=== PATIENT | male | born 1940 | race Caucasian/White ===

== ENCOUNTER 2018-04-30 19:41 | Inpatient (IN) | payer OTHER, MEDICARE ==
[~2018-04-30] VITALS: Ht 182.9 cm; Wt 97.4 kg
[2018-04-30] MEDS ORDERED: aspirin 81mg tab.chew PO ONE (19:50)
[2018-04-30 20:03] LABS: BASOPHILS % (AUTO) 0.2 % (0-1); EOSINOPHILS % (AUTO) 0.3 % (0-6); HEMATOCRIT 33.4 % (42.0-52.0); HEMOGLOBIN 10.4 g/dl (14.0-17.9); LYMPHOCYTES # (AUTO) 0.7 X10'3 (1.1-4.8); LYMPHOCYTES % (AUTO) 9.6 % (21-51); MEAN CORPUSCULAR HEMOGLOBIN 23.5 PG (27.0-31.0); MEAN CORPUSCULAR HGB CONC 31.1 % (33.0-36.5); MEAN CORPUSCULAR VOLUME 75.6 FL (78-98); MEAN PLATELET VOLUME 7.8 FL (7.4-10.4); MONOCYTES # (AUTO) 0.5 X10'3 (0-0.9); MONOCYTES % (AUTO) 6.8 % (2-12); NEUTROPHILS # (AUTO) 6.1 X10'3 (1.8-7.7); NEUTROPHILS % (AUTO) 83.1 % (42-75); PLATELET COUNT 225 X10'3 (140-440); RED BLOOD COUNT 4.42 X10'6 (4.70-6.10); RED CELL DISTRIBUTION WIDTH 20.3 % (11.5-14.5); WHITE BLOOD COUNT 7.4 X10'3 (4.5-11.0)
[2018-04-30 20:17] LABS: ALANINE AMINOTRANSFERASE 37 U/L (12-78); ALBUMIN 3.7 G/DL (3.4-5.0); ALBUMIN/GLOBULIN RATIO 1.1 (1.1-1.5); ALKALINE PHOSPHATASE 139 IU/L (46-116); ANION GAP 9 (8-16); ASPARTATE AMINO TRANSFERASE 39 U/L (10-37); BILIRUBIN,TOTAL 0.6 MG/DL (0.1-1.0); BLOOD UREA NITROGEN 23 MG/DL (7-18); CALCIUM 8.6 MG/DL (8.5-10.1); CHLORIDE 103 MMOL/L (99-107); CREATININE 0.96 MG/DL (0.60-1.10); GLUCOSE 129 MG/DL (70-104); POTASSIUM 4.2 MMOL/L (3.5-5.1); SODIUM 139 MMOL/L (135-145); eGFR 76 ML/MIN
[2018-04-30 20:19] LABS: INR 1.2 INR; PARTIAL THROMBOPLASTIN TIME 39 SECONDS (22-32); PROTHROMBIN TIME 12.3 SECONDS (9.0-12.0)
[2018-04-30 21:03] LABS: D-DIMER 0.21 MG/L FEU (0-0.50)
[2018-04-30] MEDS ORDERED: heparin 10,000 units/1 ML INJ IV ONE (21:10)
[2018-04-30 21:40] LABS: ANISOCYTOSIS 2+; BURR CELLS FEW; ELLIPTOCYTES FEW; HYPOCHROMASIA 2+; MICROCYTOSIS 2+; PLATELET ESTIMATE NORMAL; POLYCHROMASIA FEW; SCHISTOCYTES FEW; TARGET CELLS 1+
[2018-04-30] MEDS: heparin 25,000 UNIT/250ml bag 250 ML IV SCH (21:40)
[2018-04-30 22:00] VITALS: BP 131/89
[2018-04-30] MEDS ORDERED: LISI-600 PO (22:03)
[2018-04-30] MEDS ORDERED: ATOR40TA71 PO (22:03)
[2018-04-30] MEDS ORDERED: METO1TAB25 PO (22:03)
[2018-04-30] MEDS ORDERED: DABI150C PO (22:03)
[2018-04-30] MEDS ORDERED: CHOL2000 PO (22:03)
[2018-04-30] MEDS ORDERED: NORT75CA PO (22:03)
[2018-04-30] MEDS ORDERED: ondansetron/PF 4mg/2ml inj IV PRN (22:05)
[2018-04-30] MEDS ORDERED: mag hydrox/Alum hydrox/simeth 30ml oral suspension PO PRN (22:05)
[2018-04-30] MEDS ORDERED: acetaminophen 325mg tablet PO PRN (22:05)
[2018-04-30] MEDS ORDERED: magnesium hydroxide 30ml (MOM) UD suspension PO PRN (22:05)
[2018-04-30] MEDS: tirofiban 5mg in NS 100mL 100 ML IV SCH (23:55)
[2018-05-01] VITALS (14 sets, daily range): BP systolic 90–141; BP diastolic 52–91
[2018-05-01 01:56] LABS: BASOPHILS % (AUTO) 0.3 % (0-1); EOSINOPHILS # (AUTO) 0.1 X10'3 (0-0.9); EOSINOPHILS % (AUTO) 2.5 % (0-6); HEMATOCRIT 28.4 % (42.0-52.0); HEMOGLOBIN 8.7 g/dl (14.0-17.9); LYMPHOCYTES % (AUTO) 18.4 % (21-51); MEAN CORPUSCULAR HGB CONC 30.5 % (33.0-36.5); MEAN CORPUSCULAR VOLUME 75.6 FL (78-98); MEAN PLATELET VOLUME 8.3 FL (7.4-10.4); MONOCYTES # (AUTO) 0.5 X10'3 (0-0.9); NEUTROPHILS # (AUTO) 3.9 X10'3 (1.8-7.7); NEUTROPHILS % (AUTO) 69.8 % (42-75); PLATELET COUNT 195 X10'3 (140-440); RED BLOOD COUNT 3.76 X10'6 (4.70-6.10); RED CELL DISTRIBUTION WIDTH 20.1 % (11.5-14.5); WHITE BLOOD COUNT 5.5 X10'3 (4.5-11.0)
[2018-05-01 02:06] LABS: ALANINE AMINOTRANSFERASE 34 U/L (12-78); ALBUMIN 2.8 G/DL (3.4-5.0); ALBUMIN/GLOBULIN RATIO 1.1 (1.1-1.5); ALKALINE PHOSPHATASE 105 IU/L (46-116); ANION GAP 9 (8-16); ASPARTATE AMINO TRANSFERASE 47 U/L (10-37); BILIRUBIN,TOTAL 0.5 MG/DL (0.1-1.0); BLOOD UREA NITROGEN 20 MG/DL (7-18); BUN/CREATININE RATIO 22.2 (5.4-32.0); CALCIUM 8.1 MG/DL (8.5-10.1); CHLORIDE 108 MMOL/L (99-107); GLUCOSE 163 MG/DL (70-104); POTASSIUM 3.9 MMOL/L (3.5-5.1); SODIUM 142 MMOL/L (135-145); TOTAL CARBON DIOXIDE 25.2 MMOL/L (24-32); TOTAL PROTEIN 5.4 G/DL (6.4-8.2); eGFR 82 ML/MIN
[2018-05-01] MEDS: tirofiban 5mg in NS 100mL 100 ML IV SCH ×3 (02:32→19:24)
[2018-05-01 02:34] LABS: ANISOCYTOSIS 2+; PLATELET ESTIMATE NORMAL
[2018-05-01 02:37] LABS: HYPOCHROMASIA 2+; MICROCYTOSIS 2+; TARGET CELLS 1+
[2018-05-01] MEDS ORDERED: iohexol 350MG/ML 100ml bottle IV ONE ×2 (07:52→08:32)
[2018-05-01] MEDS ORDERED: heparin 1,000unit/ml 10ml vial 10 ML ONE (07:52)
[2018-05-01] MEDS ORDERED: iohexol 350 MG/ML 50ML vial IV ONE (07:52)
[2018-05-01] MEDS ORDERED: LIDOcaine 1% (10mg/ml)w/preservative injection 20ml MDV ONE (07:52)
[2018-05-01] MEDS ORDERED: midazolam 2 mg/2 ml injection ONE (07:52)
[2018-05-01] MEDS ORDERED: nitroGLYCERIN-Tridil 50MG/D5W 250 ML IV ONE (07:52)
[2018-05-01] MEDS ORDERED: fentaNYL/PF 50MCG/1 ML 2ML syringe ONE (07:52)
[2018-05-01] MEDS: aspirin 81mg tab.chew PO SCH (07:57)
[2018-05-01] MEDS ORDERED: metoprolol tartrate 25mg tablet PO SCH (08:00)
[2018-05-01] MEDS ORDERED: atorvastatin 20mg tablet PO SCH (08:00)
[2018-05-01 08:27] LABS: CHOL/HDL RATIO 1.8 (0.00-4.99); CHOLESTEROL 83 MG/DL (0-200); HDL CHOLESTEROL 45 MG/DL (35-60); LDL CHOLESTEROL 31 MG/DL (50-100); TRIGLYCERIDES 20 MG/DL (20-135)
[2018-05-01] MEDS ORDERED: tirofiban 5mg in NS 100mL 100 ML IV ONE (08:55)
[2018-05-01] MEDS ORDERED: atorvastatin 20mg tablet PO ONE (09:33)
[2018-05-01] MEDS ORDERED: MESSAGE TO NURSING PO ONE ×5 (10:30→17:10)
[2018-05-01] MEDS: normal saline 1000ml 1,000 ML IV SCH ×2 (11:04→19:35)
[2018-05-01] MEDS: heparin 10,000 units/1 ML INJ IV PRN ×2 (11:05→23:55)
[2018-05-01] MEDS: heparin 25,000 UNIT/250ml bag 250 ML IV SCH ×3 (11:06→23:58)
[2018-05-01 12:38] LABS: BASOPHILS % (AUTO) 0.2 % (0-1); EOSINOPHILS # (AUTO) 0.1 X10'3 (0-0.9); EOSINOPHILS % (AUTO) 1.9 % (0-6); HEMATOCRIT 29.8 % (42.0-52.0); HEMOGLOBIN 9.2 g/dl (14.0-17.9); LYMPHOCYTES # (AUTO) 0.7 X10'3 (1.1-4.8); LYMPHOCYTES % (AUTO) 12.1 % (21-51); MEAN CORPUSCULAR HEMOGLOBIN 23.2 PG (27.0-31.0); MEAN CORPUSCULAR HGB CONC 30.9 % (33.0-36.5); MEAN CORPUSCULAR VOLUME 75.3 FL (78-98); MEAN PLATELET VOLUME 8.7 FL (7.4-10.4); MONOCYTES # (AUTO) 0.5 X10'3 (0-0.9); MONOCYTES % (AUTO) 8.7 % (2-12); NEUTROPHILS # (AUTO) 4.6 X10'3 (1.8-7.7); NEUTROPHILS % (AUTO) 77.1 % (42-75); PLATELET COUNT 200 X10'3 (140-440); RED BLOOD COUNT 3.96 X10'6 (4.70-6.10); RED CELL DISTRIBUTION WIDTH 20.6 % (11.5-14.5)
[2018-05-01 14:28] LABS: ANISOCYTOSIS 3+; MICROCYTOSIS 1+; PLATELET ESTIMATE NORMAL
[2018-05-01] MEDS ORDERED: metoprolol tartrate 12.5mg (1/2 tablet) PO SCH (17:21)
[2018-05-01 17:26] LABS: ABG BASE EXCESS 1.2 mmol/L (-2.0-3.0); ABG HCO3 24.6 mmol/L (22.0-26.0); ABG OXYGEN SATURATION 94.2 % (95-98); ABG PCO2 (T) 34.3 mmHg (35.0-48.0); ABG PH (T) 7.474 (7.350-7.450); ABG PO2 (T) 75.9 mmHg (83-108); ALLEN'S TEST Positive; FCOHb 0.6 % (0.5-1.5); FMetHb 0.3 % (0.3-1.12); FO2Hb 93.4 % (94-100); TOTAL HEMOGLOBIN 9.9 G/dl (14.0-18.0)
[2018-05-01] MEDS ORDERED: ringers solution, lacted 1,000 ML IV ONE (17:29)
[2018-05-01 17:38] LABS: HEMOGLOBIN A1C 6.1 % (4.5-6.2)
[2018-05-01 17:44] LABS: ALBUMIN 2.9 G/DL (3.4-5.0); ANION GAP 8 (8-16); ASPARTATE AMINO TRANSFERASE 52 U/L (10-37); BILIRUBIN,TOTAL 0.6 MG/DL (0.1-1.0); BLOOD UREA NITROGEN 21 MG/DL (7-18); BUN/CREATININE RATIO 20.8 (5.4-32.0); CALCIUM 8.3 MG/DL (8.5-10.1); CHLORIDE 107 MMOL/L (99-107); CREATININE 1.01 MG/DL (0.60-1.10); GLUCOSE 131 MG/DL (70-104); POTASSIUM 4.3 MMOL/L (3.5-5.1); SODIUM 141 MMOL/L (135-145); TOTAL CARBON DIOXIDE 26.4 MMOL/L (24-32); TOTAL PROTEIN 5.8 G/DL (6.4-8.2); eGFR 72 ML/MIN
[2018-05-01 17:45] LABS: ALANINE AMINOTRANSFERASE 32 U/L (12-78); ALKALINE PHOSPHATASE 121 IU/L (46-116)
[2018-05-01 18:18] LABS: INR 1.2 INR; PROTHROMBIN TIME 12.3 SECONDS (9.0-12.0)
[2018-05-01] MEDS: metoprolol tartrate 12.5mg (1/2 tablet) PO SCH (20:00)
[2018-05-01] MEDS: temazepam 15mg capsule PO PRN (23:23)
[2018-05-02] VITALS (25 sets, daily range): BP systolic 112–138; BP diastolic 51–80
[2018-05-02] MEDS: tirofiban 5mg in NS 100mL 100 ML IV SCH ×4 (01:13→18:45)
[2018-05-02] MEDS ORDERED: vancomycin/NS 1 GM ADD-VANTAGE 250 ML IV ONE (06:00)
[2018-05-02] MEDS ORDERED: dextrose 50%-water 50ml dispensing syringe IV PRN ×2 (06:00→13:10)
[2018-05-02] MEDS ORDERED: famotidine 20mg tablet PO ONE (06:00)
[2018-05-02] MEDS ORDERED: cefazolin/dext.iso 2gm/50ml 50 ML IV ONE (06:00)
[2018-05-02] MEDS ORDERED: LORazepam 2 mg/ml vial IV ONE (06:00)
[2018-05-02 06:12] LABS: BASOPHILS % (AUTO) 0.3 % (0-1); EOSINOPHILS # (AUTO) 0.2 X10'3 (0-0.9); EOSINOPHILS % (AUTO) 2.7 % (0-6); HEMATOCRIT 29.3 % (42.0-52.0); HEMOGLOBIN 9.1 g/dl (14.0-17.9); LYMPHOCYTES # (AUTO) 1.4 X10'3 (1.1-4.8); LYMPHOCYTES % (AUTO) 23.1 % (21-51); MEAN CORPUSCULAR HEMOGLOBIN 23.4 PG (27.0-31.0); MEAN CORPUSCULAR VOLUME 75.3 FL (78-98); MEAN PLATELET VOLUME 8.5 FL (7.4-10.4); MONOCYTES # (AUTO) 0.6 X10'3 (0-0.9); MONOCYTES % (AUTO) 9.7 % (2-12); NEUTROPHILS # (AUTO) 3.8 X10'3 (1.8-7.7); NEUTROPHILS % (AUTO) 64.2 % (42-75); PLATELET COUNT 194 X10'3 (140-440); RED BLOOD COUNT 3.89 X10'6 (4.70-6.10); RED CELL DISTRIBUTION WIDTH 20.1 % (11.5-14.5); WHITE BLOOD COUNT 5.9 X10'3 (4.5-11.0)
[2018-05-02 06:21] LABS: INR 1.2 INR
[2018-05-02] MEDS ORDERED: SUfentanil 50mcg/ml 1ml amp IV ONE ×2 (06:52)
[2018-05-02] MEDS ORDERED: MIDAZolam 1mg/ml 10ml vial ONE (06:52)
[2018-05-02 06:54] LABS: ALANINE AMINOTRANSFERASE 29 U/L (12-78); ALBUMIN 2.7 G/DL (3.4-5.0); ALKALINE PHOSPHATASE 108 IU/L (46-116); ANION GAP 8 (8-16); ASPARTATE AMINO TRANSFERASE 39 U/L (10-37); BILIRUBIN,TOTAL 0.6 MG/DL (0.1-1.0); BLOOD UREA NITROGEN 18 MG/DL (7-18); BUN/CREATININE RATIO 20.5 (5.4-32.0); CALCIUM 8.2 MG/DL (8.5-10.1); CHLORIDE 107 MMOL/L (99-107); CREATININE 0.88 MG/DL (0.60-1.10); GLUCOSE 89 MG/DL (70-104); POTASSIUM 4.2 MMOL/L (3.5-5.1); SODIUM 140 MMOL/L (135-145); TOTAL CARBON DIOXIDE 25.2 MMOL/L (24-32); TOTAL PROTEIN 5.3 G/DL (6.4-8.2); eGFR 84 ML/MIN
[2018-05-02] MEDS ORDERED: ePHEDrine 50MG/ML INJ. ONE ×2 (06:55→15:28)
[2018-05-02] MEDS ORDERED: isoflurane 100ml inhalation liquid IH ONE ×2 (06:55)
[2018-05-02] MEDS ORDERED: NORepinephrine bitartrate 8 MG in NS 250 ML BAG (32 mcg/ml) IV ONE ×2 (06:55→09:00)
[2018-05-02] MEDS ORDERED: phenylephrine 10mg/ml inj. ONE ×3 (06:55→09:00)
[2018-05-02] MEDS ORDERED: DOPamine/D5W 400mg/250ml bag IV ONE (06:55)
[2018-05-02] MEDS ORDERED: nitroGLYCERIN in D5W 50mg/250ml (Tridil) infusion IV ONE (06:55)
[2018-05-02] MEDS ORDERED: etomidate 2mg/ml inj. ONE ×2 (06:55→15:28)
[2018-05-02] MEDS ORDERED: protamine sulf. 10mg/ml inj. IV ONE (06:55)
[2018-05-02] MEDS ORDERED: papaverine 30 mg/ml 2ml inj. IA ONE (07:00)
[2018-05-02] MEDS ORDERED: heparin 10,000 units/1 ML INJ IR ONE (07:00)
[2018-05-02 07:55] LABS: ABG BASE EXCESS -1.7 mmol/L (-2.0-3.0); ABG HCO3 22.8 mmol/L (22.0-26.0); ABG OXYGEN SATURATION 98.6 % (95-98); ABG PCO2 37.4 mmHg (35.0-45.0); ABG PH 7.403 (7.350-7.450); ABG PO2 375.5 mmHg (60.0-100.0); CL (ABG) 110 mmol/L (99-107); FCOHb 0.1 % (0.5-1.5); FMetHb 0.9 % (0.3-1.12); FO2Hb 97.6 % (94-100); GLUCOSE (ABG) 95 mg/dl (70-105); IONIZED CA (ABG) 1.13 mmol/L (1.03-1.32); NA (ABG) 135 mmol/L (135-145); TOTAL HEMOGLOBIN 9.2 G/dl (14.0-18.0)
[2018-05-02 08:36] LABS: ACT @ 1.70 U 453 SEC (193-297); ACT @ 2.84 U 771 SEC (260-420); BASELINE ACT 182 SEC (101-148); PATIENT WEIGHT 88.0k KG
[2018-05-02] MEDS ORDERED: aminocaproic acid 250 MG/1 ML inj. ONE (09:00)
[2018-05-02] MEDS ORDERED: heparin 10,000 units/1 ML INJ ONE ×2 (09:00)
[2018-05-02] MEDS ORDERED: heparin 1,000 units/ml 10ml inj ONE (09:00)
[2018-05-02] MEDS ORDERED: potassium Cl 2 mEq/ml inj IV ONE (09:00)
[2018-05-02] MEDS ORDERED: albumin (human) 25% 100 ML IV solution IV ONE (09:00)
[2018-05-02] MEDS ORDERED: LIDOcaine 2% (20 mg/ml) 5ml cardiac syringe ONE (09:00)
[2018-05-02] MEDS ORDERED: sodium bicarbonate (8.4%) 1 mEq/ml syringe ONE (09:00)
[2018-05-02] MEDS ORDERED: methylPREDNISolone sod succ 1000mg vial ONE (09:00)
[2018-05-02] MEDS ORDERED: magnesium sulf 1 GM/2 ML ONE (09:00)
[2018-05-02] MEDS ORDERED: papaverine 30 mg/ml 2ml inj. ONE (09:00)
[2018-05-02] MEDS ORDERED: calcium chloride 100 MG/1 ML inj IV ONE (09:00)
[2018-05-02 09:15] LABS: ABG BASE EXCESS -5.4 mmol/L (-2.0-3.0); ABG OXYGEN SATURATION 98.7 % (95-98); ABG PCO2 38.5 mmHg (35.0-45.0); ABG PH 7.333 (7.350-7.450); ABG PO2 247.3 mmHg (60.0-100.0); CL (ABG) 107 mmol/L (99-107); FCOHb 0.4 % (0.5-1.5); FMetHb 0.2 % (0.3-1.12); FO2Hb 98.1 % (94-100); GLUCOSE (ABG) 124 mg/dl (70-105); IONIZED CA (ABG) 1.14 mmol/L (1.03-1.32); NA (ABG) 135 mmol/L (135-145); TOTAL HEMOGLOBIN 8.8 G/dl (14.0-18.0)
[2018-05-02 09:51] LABS: ABG BASE EXCESS -3.3 mmol/L (-2.0-3.0); ABG HCO3 21.8 mmol/L (22.0-26.0); ABG OXYGEN SATURATION 98.9 % (95-98); ABG PCO2 39.1 mmHg (35.0-45.0); ABG PH 7.364 (7.350-7.450); ABG PO2 548.7 mmHg (60.0-100.0); CL (ABG) 106 mmol/L (99-107); FCOHb 0.3 % (0.5-1.5); FMetHb 0.3 % (0.3-1.12); FO2Hb 98.3 % (94-100); GLUCOSE (ABG) 151 mg/dl (70-105); IONIZED CA (ABG) 1.06 mmol/L (1.03-1.32); K (ABG) 4.7 mmol/L (3.3-5.1); NA (ABG) 135 mmol/L (135-145); TOTAL HEMOGLOBIN 7.9 G/dl (14.0-18.0)
[2018-05-02] MEDS ORDERED: MESSAGE TO NURSING PO ONE ×2 (10:00)
[2018-05-02 10:06] LABS: ABG BASE EXCESS VENOUS -1.4 mmol/L; ABG HCO3 VENOUS 23.7 mmol/L; ABG PCO2 VENOUS 41.3 mmHg; ABG PO2 VENOUS 52.2 mmHg; CL (ABG) 105 mmol/L (99-107); FCOHb VENOUS 0.7 %; FHHb VENOUS 14.5 %; FMetHb VENOUS 0.2 %; FO2Hb VENOUS 84.6 %; GLUCOSE (ABG) 153 mg/dl (70-105); IONIZED CA (ABG) 1.06 mmol/L (1.03-1.32); K (ABG) 4.4 mmol/L (3.3-5.1); NA (ABG) 137 mmol/L (135-145); TOTAL HEMOGLOBIN 9.7 G/dl (14.0-18.0)
[2018-05-02 10:46] LABS: ABG BASE EXCESS -3.9 mmol/L (-2.0-3.0); ABG HCO3 21.5 mmol/L (22.0-26.0); ABG OXYGEN SATURATION 98.6 % (95-98); ABG PCO2 40.6 mmHg (35.0-45.0); ABG PH 7.342 (7.350-7.450); ABG PO2 263.6 mmHg (60.0-100.0); CL (ABG) 108 mmol/L (99-107); FCOHb 0.3 % (0.5-1.5); FMetHb 0.4 % (0.3-1.12); FO2Hb 97.9 % (94-100); GLUCOSE (ABG) 112 mg/dl (70-105); IONIZED CA (ABG) 1.09 mmol/L (1.03-1.32); K (ABG) 4.9 mmol/L (3.3-5.1); NA (ABG) 136 mmol/L (135-145); TOTAL HEMOGLOBIN 8.9 G/dl (14.0-18.0)
[2018-05-02 11:36] LABS: ABG BASE EXCESS -3.8 mmol/L (-2.0-3.0); ABG HCO3 21.2 mmol/L (22.0-26.0); ABG OXYGEN SATURATION 98.2 % (95-98); ABG PCO2 38.3 mmHg (35.0-45.0); ABG PH 7.361 (7.350-7.450); ABG PO2 163.4 mmHg (60.0-100.0); CL (ABG) 109 mmol/L (99-107); FCOHb 0.5 % (0.5-1.5); FMetHb 0.2 % (0.3-1.12); FO2Hb 97.5 % (94-100); GLUCOSE (ABG) 103 mg/dl (70-105); IONIZED CA (ABG) 1.11 mmol/L (1.03-1.32); K (ABG) 5.2 mmol/L (3.3-5.1); NA (ABG) 137 mmol/L (135-145); TOTAL HEMOGLOBIN 8.9 G/dl (14.0-18.0)
[2018-05-02 12:46] LABS: ABG BASE EXCESS VENOUS -0.9 mmol/L; ABG HCO3 VENOUS 24.7 mmol/L; ABG PCO2 VENOUS 45.1 mmHg; ABG PO2 VENOUS 36.1 mmHg; CL (ABG) 110 mmol/L (99-107); FCOHb VENOUS 1.2 %; FHHb VENOUS 33.2 %; FMetHb VENOUS 0.6 %; GLUCOSE (ABG) 132 mg/dl (70-105); IONIZED CA (ABG) 1.17 mmol/L (1.03-1.32); K (ABG) 4.7 mmol/L (3.3-5.1); NA (ABG) 137 mmol/L (135-145); TOTAL HEMOGLOBIN 9.6 G/dl (14.0-18.0)
[2018-05-02] MEDS: insulin Lispro (HumaLOG) vial - multi-dose SQ SCH ×3 (13:00→18:00)
[2018-05-02] MEDS: metoprolol tartrate 12.5mg (1/2 tablet) PO SCH (13:07)
[2018-05-02] MEDS: lisinopril 5mg tablet PO SCH (13:08)
[2018-05-02] MEDS: aspirin 81mg tab.chew PO SCH (13:08)
[2018-05-02] MEDS ORDERED: DOPamine 400mg/D5W 250ml 250 ML IV PRN (13:09)
[2018-05-02] MEDS ORDERED: NORepinephrine 8mg/ 250ml NS 250 ML IV PRN (13:09)
[2018-05-02] MEDS ORDERED: niCARDipine-NS 40mg/200ml IVPB 200 ML IV PRN (13:09)
[2018-05-02] MEDS ORDERED: nitroGLYCERIN-Tridil 50MG/D5W 250 ML IV PRN (13:09)
[2018-05-02] MEDS ORDERED: sodium phosphate inj. 30 MMOL in dextrose 5%-water 250 ML IV PRN (13:10)
[2018-05-02] MEDS ORDERED: normal saline 250ml IV soln 250 ML IV PRN (13:10)
[2018-05-02] MEDS ORDERED: insulin regular, human inj. 100 UNITS in normal saline 100ml IV soln 100 ML IV SCH ×2 (13:10)
[2018-05-02] MEDS ORDERED: pantoprazole 40 MG vial IV ONE (13:10)
[2018-05-02] MEDS ORDERED: sodium phosphate inj. 15 MMOL in dextrose 5%-water 150 ML IV PRN (13:10)
[2018-05-02] MEDS ORDERED: potassium Cl 20mEq/100mL bag 100 ML IV PRN ×2 (13:10)
[2018-05-02] MEDS ORDERED: albuterol 2.5 MG/3 ML nebule NEB PRN (13:10)
[2018-05-02] MEDS ORDERED: Neutra Phos packet PO PRN (13:10)
[2018-05-02] MEDS ORDERED: acetaminophen 325mg tablet PO PRN (13:10)
[2018-05-02] MEDS ORDERED: metoclopramide 5 mg/ml inj IV PRN (13:10)
[2018-05-02] MEDS ORDERED: morphine 4 MG/ML inj SYRINge IV PRN (13:10)
[2018-05-02] MEDS ORDERED: albumin (Human) 5% 250ml 250 ML IV PRN (13:10)
[2018-05-02] MEDS ORDERED: magnesium hydroxide 30ml (MOM) UD suspension PO PRN (13:10)
[2018-05-02] MEDS ORDERED: ondansetron/PF 4mg/2ml inj IV PRN (13:10)
[2018-05-02 13:40] LABS: ABG BASE EXCESS -1.7 mmol/L (-2.0-3.0); ABG HCO3 23.3 mmol/L (22.0-26.0); ABG OXYGEN SATURATION 96.3 % (95-98); ABG PCO2 (T) 40.4 mmHg (35.0-48.0); ABG PH (T) 7.378 (7.350-7.450); ABG PO2 (T) 93.4 mmHg (83-108); FCOHb 0.5 % (0.5-1.5); FMetHb 0.1 % (0.3-1.12); FO2Hb 95.7 % (94-100); MINUTE VOLUME 9 L/min; PEEP 5 cm H2O; RESPIRATORY RATE 12 b/min; RESPIRATORY RATE (OBSERVED) 12 b/min; TIDAL VOLUME 650 mL; TOTAL HEMOGLOBIN 11.7 G/dl (14.0-18.0)
[2018-05-02 13:47] LABS: BASOPHILS % (AUTO) 0.1 % (0-1); EOSINOPHILS # (AUTO) 0.4 X10'3 (0-0.9); EOSINOPHILS % (AUTO) 2.3 % (0-6); HEMATOCRIT 34.9 % (42.0-52.0); HEMOGLOBIN 10.9 g/dl (14.0-17.9); LYMPHOCYTES # (AUTO) 0.8 X10'3 (1.1-4.8); LYMPHOCYTES % (AUTO) 4.5 % (21-51); MEAN CORPUSCULAR HEMOGLOBIN 24.3 PG (27.0-31.0); MEAN CORPUSCULAR HGB CONC 31.3 % (33.0-36.5); MEAN CORPUSCULAR VOLUME 77.7 FL (78-98); MEAN PLATELET VOLUME 8.2 FL (7.4-10.4); MONOCYTES # (AUTO) 1.1 X10'3 (0-0.9); MONOCYTES % (AUTO) 5.8 % (2-12); NEUTROPHILS # (AUTO) 16.1 X10'3 (1.8-7.7); NEUTROPHILS % (AUTO) 87.3 % (42-75); PLATELET COUNT 132 X10'3 (140-440); RED BLOOD COUNT 4.49 X10'6 (4.70-6.10); RED CELL DISTRIBUTION WIDTH 20.4 % (11.5-14.5); WHITE BLOOD COUNT 18.5 X10'3 (4.5-11.0)
[2018-05-02] MEDS: insulin regular, human inj. 100 UNITS in normal saline 100ml IV soln 100 ML IV SCH ×2 (14:06)
[2018-05-02] MEDS: sodium chloride 0.45% 1,000 ML IV SCH (14:07)
[2018-05-02 14:08] LABS: ALANINE AMINOTRANSFERASE 20 U/L (12-78); ALBUMIN 2.4 G/DL (3.4-5.0); ALBUMIN/GLOBULIN RATIO 1.2 (1.1-1.5); ALKALINE PHOSPHATASE 89 IU/L (46-116); ANION GAP 10 (8-16); ASPARTATE AMINO TRANSFERASE 54 U/L (10-37); BLOOD UREA NITROGEN 17 MG/DL (7-18); BUN/CREATININE RATIO 18.7 (5.4-32.0); CALCIUM 8.1 MG/DL (8.5-10.1); CHLORIDE 110 MMOL/L (99-107); CREATININE 0.91 MG/DL (0.60-1.10); GLUCOSE 144 MG/DL (70-104); MAGNESIUM 2.8 MG/DL (1.5-2.4); PHOSPHORUS 3.2 MG/DL (2.3-4.5); POTASSIUM 4.6 MMOL/L (3.5-5.1); SODIUM 145 MMOL/L (135-145); TOTAL CARBON DIOXIDE 25.2 MMOL/L (24-32); TOTAL PROTEIN 4.4 G/DL (6.4-8.2); eGFR 81 ML/MIN
[2018-05-02 14:36] LABS: INR 1.3 INR; PARTIAL THROMBOPLASTIN TIME 27 SECONDS (22-32); PROTHROMBIN TIME 13.4 SECONDS (9.0-12.0)
[2018-05-02] MEDS: morphine 4 MG/ML inj SYRINge IV PRN ×5 (14:41→23:58)
[2018-05-02] MEDS ORDERED: albuterol 2.5 MG/3 ML nebule NEB SCH (15:00)
[2018-05-02 15:04] LABS: TOTAL CELLS COUNTED 100
[2018-05-02 15:05] LABS: ANISOCYTOSIS 2+; BURR CELLS 1+; PLATELET ESTIMATE DECREASED; SCHISTOCYTES FEW
[2018-05-02] MEDS ORDERED: LIDOcaine 2% (20mg/ml) 5ml vial ONE (15:28)
[2018-05-02] MEDS ORDERED: glycopyrrolate 0.2mg/ml inj ONE (15:28)
[2018-05-02] MEDS ORDERED: rocuronium 10mg/ml inj IV ONE (15:28)
[2018-05-02] MEDS ORDERED: epiNEPHrine 1 mg/ml inj ONE (15:28)
[2018-05-02] MEDS: ceFAZolin 1GM/D5W- ADD-VANTAGE 50 ML IV SCH ×2 (16:27→23:58)
[2018-05-02 19:28] LABS: BASOPHILS % (AUTO) 0 % (0-1); EOSINOPHILS # (AUTO) 0.1 X10'3 (0-0.9); EOSINOPHILS % (AUTO) 1.4 % (0-6); HEMATOCRIT 30.8 % (42.0-52.0); HEMOGLOBIN 9.7 g/dl (14.0-17.9); LYMPHOCYTES # (AUTO) 0.2 X10'3 (1.1-4.8); LYMPHOCYTES % (AUTO) 2.2 % (21-51); MEAN CORPUSCULAR HEMOGLOBIN 24.5 PG (27.0-31.0); MEAN CORPUSCULAR HGB CONC 31.4 % (33.0-36.5); MEAN CORPUSCULAR VOLUME 78.1 FL (78-98); MEAN PLATELET VOLUME 8.1 FL (7.4-10.4); MONOCYTES # (AUTO) 0.3 X10'3 (0-0.9); MONOCYTES % (AUTO) 3.1 % (2-12); NEUTROPHILS # (AUTO) 9.3 X10'3 (1.8-7.7); NEUTROPHILS % (AUTO) 93.3 % (42-75); PLATELET COUNT 100 X10'3 (140-440); RED BLOOD COUNT 3.95 X10'6 (4.70-6.10); RED CELL DISTRIBUTION WIDTH 20.3 % (11.5-14.5)
[2018-05-02 19:39] LABS: ANISOCYTOSIS 2+; ELLIPTOCYTES FEW; PLATELET ESTIMATE DECREASED; TARGET CELLS FEW
[2018-05-02 19:40] LABS: HYPOCHROMASIA 1+; SCHISTOCYTES FEW
[2018-05-02 19:42] LABS: ALBUMIN 2.8 G/DL (3.4-5.0); ANION GAP 7 (8-16); BLOOD UREA NITROGEN 18 MG/DL (7-18); BUN/CREATININE RATIO 17.8 (5.4-32.0); CALCIUM 8.3 MG/DL (8.5-10.1); CHLORIDE 111 MMOL/L (99-107); CREATININE 1.01 MG/DL (0.60-1.10); GLUCOSE 128 MG/DL (70-104); MAGNESIUM 2.4 MG/DL (1.5-2.4); PHOSPHORUS 3.7 MG/DL (2.3-4.5); POTASSIUM 4.3 MMOL/L (3.5-5.1); SODIUM 143 MMOL/L (135-145); TOTAL CARBON DIOXIDE 25.4 MMOL/L (24-32); eGFR 72 ML/MIN
[2018-05-02] MEDS: docusate sod 100mg capsule PO SCH (20:00)
[2018-05-02] MEDS ORDERED: mupirocin 2% ointment 22GM NS SCH (20:00)
[2018-05-02] MEDS: mupirocin 2% nasal ointment 1gm UD NS SCH (20:10)
[2018-05-02] MEDS: vancomycin/NS 1 GM ADD-VANTAGE 250 ML IV SCH (20:10)
[2018-05-02] MEDS ORDERED: atorvastatin 20mg tablet PO SCH (21:00)
[2018-05-02 21:35] LABS: ABG BASE EXCESS 0.4 mmol/L (-2.0-3.0); ABG HCO3 24.3 mmol/L (22.0-26.0); ABG OXYGEN SATURATION 95.4 % (95-98); ABG PCO2 (T) 35.7 mmHg (35.0-48.0); ABG PH (T) 7.449 (7.350-7.450); ABG PO2 (T) 79.2 mmHg (83-108); FCOHb 0.1 % (0.5-1.5); FMetHb 0.3 % (0.3-1.12); MINUTE VOLUME 8 L/min; PATIENT TEMPERATURE 36.5; PEEP 5 cm H2O; TOTAL HEMOGLOBIN 9.9 G/dl (14.0-18.0)
[2018-05-02] MEDS: potassium Cl 20mEq/100mL bag 100 ML IV PRN (21:56)
[2018-05-03] VITALS (26 sets, daily range): BP systolic 96–143; BP diastolic 48–90
[2018-05-03] MEDS: tirofiban 5mg in NS 100mL 100 ML IV SCH (02:29)
[2018-05-03] MEDS: morphine 4 MG/ML inj SYRINge IV PRN (03:25)
[2018-05-03 03:41] LABS: BASOPHILS % (AUTO) 0 % (0-1); EOSINOPHILS # (AUTO) 0.1 X10'3 (0-0.9); EOSINOPHILS % (AUTO) 1.1 % (0-6); HEMATOCRIT 28.2 % (42.0-52.0); HEMOGLOBIN 8.8 g/dl (14.0-17.9); LYMPHOCYTES # (AUTO) 0.3 X10'3 (1.1-4.8); LYMPHOCYTES % (AUTO) 2.5 % (21-51); MEAN CORPUSCULAR HEMOGLOBIN 24.1 PG (27.0-31.0); MEAN CORPUSCULAR HGB CONC 31.1 % (33.0-36.5); MEAN CORPUSCULAR VOLUME 77.8 FL (78-98); MEAN PLATELET VOLUME 8.6 FL (7.4-10.4); MONOCYTES # (AUTO) 0.6 X10'3 (0-0.9); MONOCYTES % (AUTO) 4.6 % (2-12); NEUTROPHILS # (AUTO) 12.3 X10'3 (1.8-7.7); NEUTROPHILS % (AUTO) 91.8 % (42-75); PLATELET COUNT 98 X10'3 (140-440); RED BLOOD COUNT 3.63 X10'6 (4.70-6.10); RED CELL DISTRIBUTION WIDTH 20.5 % (11.5-14.5); WHITE BLOOD COUNT 13.4 X10'3 (4.5-11.0)
[2018-05-03 03:58] LABS: ALANINE AMINOTRANSFERASE 23 U/L (12-78); ALBUMIN 2.7 G/DL (3.4-5.0); ALBUMIN/GLOBULIN RATIO 1.1 (1.1-1.5); ALKALINE PHOSPHATASE 82 IU/L (46-116); ANION GAP 8 (8-16); ASPARTATE AMINO TRANSFERASE 59 U/L (10-37); BILIRUBIN,TOTAL 0.7 MG/DL (0.1-1.0); BLOOD UREA NITROGEN 20 MG/DL (7-18); BUN/CREATININE RATIO 21.1 (5.4-32.0); CALCIUM 8.4 MG/DL (8.5-10.1); CHLORIDE 110 MMOL/L (99-107); CREATININE 0.95 MG/DL (0.60-1.10); GLUCOSE 119 MG/DL (70-104); MAGNESIUM 2.2 MG/DL (1.5-2.4); PHOSPHORUS 4.4 MG/DL (2.3-4.5); POTASSIUM 4.5 MMOL/L (3.5-5.1); SODIUM 144 MMOL/L (135-145); TOTAL PROTEIN 5.2 G/DL (6.4-8.2); eGFR 77 ML/MIN
[2018-05-03] MEDS: HYDROcodone/acetaminophen 10/325mg tab PO PRN (03:59)
[2018-05-03 04:02] LABS: INR 1.2 INR; PARTIAL THROMBOPLASTIN TIME 27 SECONDS (22-32); PROTHROMBIN TIME 11.6 SECONDS (9.0-12.0)
[2018-05-03] MEDS: magnesium 2GM in 50ml NS 50 ML IV PRN (04:19)
[2018-05-03 06:21] LABS: ACTIVATED CLOTTING TIME 143 SEC (101-148)
[2018-05-03] MEDS: insulin regular, human inj. 100 UNITS in normal saline 100ml IV soln 100 ML IV SCH ×2 (07:18)
[2018-05-03] MEDS: ceFAZolin 1GM/D5W- ADD-VANTAGE 50 ML IV SCH ×2 (07:46→15:58)
[2018-05-03] MEDS: atorvastatin 10mg tablet PO SCH (07:47)
[2018-05-03] MEDS: mupirocin 2% nasal ointment 1gm UD NS SCH ×2 (07:47→20:35)
[2018-05-03] MEDS: metoprolol tartrate 50mg tablet PO SCH ×2 (07:47→20:36)
[2018-05-03] MEDS: docusate sod 100mg capsule PO SCH ×2 (07:47→20:36)
[2018-05-03] MEDS: aspirin 81mg tab.chew PO SCH (07:47)
[2018-05-03] MEDS: vancomycin/NS 1 GM ADD-VANTAGE 250 ML IV SCH ×2 (07:47→20:35)
[2018-05-03] MEDS ORDERED: aspirin 325mg tablet, delayed-release (Ecotrin) PO SCH (08:00)
[2018-05-03] MEDS ORDERED: metoprolol tartrate 12.5mg (1/2 tablet) PO SCH (08:00)
[2018-05-03] MEDS: insulin Lispro (HumaLOG) vial - multi-dose SQ SCH ×3 (09:00→18:00)
[2018-05-03] MEDS: lisinopril 5mg tablet PO SCH (11:47)
[2018-05-03] MEDS: temazepam 15mg capsule PO PRN (20:36)
[2018-05-03] MEDS: polyethylene glycol 3350 17gm powd pack PO SCH (20:37)
[2018-05-03] MEDS ORDERED: dextrose ORAL solution 15 GM/59 ML bottle PO PRN ×2 (22:15)
[2018-05-03] MEDS ORDERED: glucagon, human recombinant 1mg kit SUBCUT PRN (22:15)
[2018-05-03] MEDS ORDERED: MESSAGE TO PHARMACY PO ONE (22:15)
[2018-05-03] MEDS ORDERED: dextrose 50%-water 50ml dispensing syringe IV PRN ×2 (22:15)
[2018-05-03] MEDS: insulin glargine (Lantus) pen - multi-dose SQ SCH (22:46)
[2018-05-04] VITALS (24 sets, daily range): BP systolic 113–157; BP diastolic 59–90
[2018-05-04] MEDS: heparin 25,000 UNIT/250ml bag 250 ML IV SCH (00:08)
[2018-05-04] MEDS: ceFAZolin 1GM/D5W- ADD-VANTAGE 50 ML IV SCH (00:39)
[2018-05-04 04:07] LABS: BASOPHILS % (AUTO) 0.3 % (0-1); EOSINOPHILS % (AUTO) 0 % (0-6); HEMATOCRIT 25.3 % (42.0-52.0); LYMPHOCYTES # (AUTO) 0.5 X10'3 (1.1-4.8); LYMPHOCYTES % (AUTO) 2.7 % (21-51); MEAN CORPUSCULAR HEMOGLOBIN 24.4 PG (27.0-31.0); MEAN CORPUSCULAR HGB CONC 31.7 % (33.0-36.5); MEAN PLATELET VOLUME 8.8 FL (7.4-10.4); MONOCYTES % (AUTO) 5.5 % (2-12); NEUTROPHILS # (AUTO) 17.5 X10'3 (1.8-7.7); NEUTROPHILS % (AUTO) 91.5 % (42-75); PLATELET COUNT 97 X10'3 (140-440); RED BLOOD COUNT 3.28 X10'6 (4.70-6.10); RED CELL DISTRIBUTION WIDTH 20.8 % (11.5-14.5); WHITE BLOOD COUNT 19.1 X10'3 (4.5-11.0)
[2018-05-04 04:21] LABS: ANISOCYTOSIS 3+; PLATELET ESTIMATE DECREASED; POLYCHROMASIA FEW; TOTAL CELLS COUNTED 100
[2018-05-04 04:22] LABS: ACANTHOCYTES FEW; ALANINE AMINOTRANSFERASE 27 U/L (12-78); ALBUMIN 2.8 G/DL (3.4-5.0); ALBUMIN/GLOBULIN RATIO 1.1 (1.1-1.5); ALKALINE PHOSPHATASE 85 IU/L (46-116); ANION GAP 6 (8-16); ASPARTATE AMINO TRANSFERASE 56 U/L (10-37); BILIRUBIN,TOTAL 0.7 MG/DL (0.1-1.0); BLOOD UREA NITROGEN 33 MG/DL (7-18); CALCIUM 8.4 MG/DL (8.5-10.1); CHLORIDE 104 MMOL/L (99-107); GLUCOSE 171 MG/DL (70-104); MAGNESIUM 2.1 MG/DL (1.5-2.4); PHOSPHORUS 3.9 MG/DL (2.3-4.5); POIKILOCYTOSIS 1+; SODIUM 138 MMOL/L (135-145); TOTAL CARBON DIOXIDE 27.7 MMOL/L (24-32); TOTAL PROTEIN 5.4 G/DL (6.4-8.2); eGFR 72 ML/MIN
[2018-05-04] MEDS: HYDROcodone/acetaminophen 10/325mg tab PO PRN (06:10)
[2018-05-04] MEDS: metoprolol tartrate 50mg tablet PO SCH ×2 (07:26→20:28)
[2018-05-04] MEDS: aspirin 81mg tab.chew PO SCH (07:26)
[2018-05-04] MEDS: lisinopril 5mg tablet PO SCH (07:26)
[2018-05-04] MEDS: docusate sod 100mg capsule PO SCH ×2 (07:26→20:27)
[2018-05-04] MEDS: pantoprazole 40mg Tablet.DR PO SCH (07:26)
[2018-05-04] MEDS: atorvastatin 10mg tablet PO SCH (07:26)
[2018-05-04] MEDS: mupirocin 2% nasal ointment 1gm UD NS SCH (07:27)
[2018-05-04] MEDS: insulin Lispro (HumaLOG) vial - multi-dose SQ SCH ×2 (09:28→18:46)
[2018-05-04] MEDS: sodium chloride 0.45% 1,000 ML IV SCH (09:52)
[2018-05-04] MEDS: magnesium 2GM in 50ml NS 50 ML IV PRN (14:30)
[2018-05-04] MEDS: ipratropium/albuterol 3ml nebule IH PRN (19:04)
[2018-05-04 20:15] LABS: MAGNESIUM 2.1 MG/DL (1.5-2.4); POTASSIUM 4.4 MMOL/L (3.5-5.1)
[2018-05-04] MEDS: polyethylene glycol 3350 17gm powd pack PO SCH (20:28)
[2018-05-04] MEDS: potassium Cl 20mEq/100mL bag 100 ML IV PRN (22:32)
[2018-05-04 23:01] LABS: POTASSIUM 4.6 MMOL/L (3.5-5.1)
[2018-05-04 23:03] LABS: MAGNESIUM 4.3 MG/DL (1.5-2.4)
[2018-05-04] MEDS ORDERED: amiodarone/D5 360MG/200ML BAG 200 ML IV ONE (23:59)
[2018-05-04] MEDS ORDERED: amiodarone 150mg/dext, iso-os 100 ML IV ONE (23:59)
[2018-05-05] VITALS (24 sets, daily range): BP systolic 100–135; BP diastolic 52–80
[2018-05-05] MEDS ORDERED: amiodarone 150mg/dext, iso-os 100 ML IV ONE
[2018-05-05] MEDS: amiodarone/D5 360MG/200ML BAG 200 ML IV SCH ×2 (00:11→05:53)
[2018-05-05 02:50] LABS: ALANINE AMINOTRANSFERASE 23 U/L (12-78); ALBUMIN 2.5 G/DL (3.4-5.0); ALKALINE PHOSPHATASE 75 IU/L (46-116); ANION GAP 4 (8-16); ASPARTATE AMINO TRANSFERASE 41 U/L (10-37); BILIRUBIN,TOTAL 0.6 MG/DL (0.1-1.0); BLOOD UREA NITROGEN 27 MG/DL (7-18); CALCIUM 8.1 MG/DL (8.5-10.1); CHLORIDE 103 MMOL/L (99-107); CREATININE 0.87 MG/DL (0.60-1.10); GLUCOSE 170 MG/DL (70-104); MAGNESIUM 2.2 MG/DL (1.5-2.4); PHOSPHORUS 2.4 MG/DL (2.3-4.5); POTASSIUM 4.8 MMOL/L (3.5-5.1); SODIUM 135 MMOL/L (135-145); TOTAL CARBON DIOXIDE 27.6 MMOL/L (24-32); TOTAL PROTEIN 4.9 G/DL (6.4-8.2); eGFR 85 ML/MIN
[2018-05-05] MEDS: magnesium 2GM in 50ml NS 50 ML IV PRN (03:01)
[2018-05-05] MEDS: HYDROcodone/acetaminophen 10/325mg tab PO PRN ×2 (04:26→20:17)
[2018-05-05 07:02] LABS: BASOPHILS % (AUTO) 0 % (0-1); EOSINOPHILS % (AUTO) 0 % (0-6); HEMATOCRIT 25.8 % (42.0-52.0); HEMOGLOBIN 8.1 g/dl (14.0-17.9); LYMPHOCYTES # (AUTO) 0.8 X10'3 (1.1-4.8); LYMPHOCYTES % (AUTO) 5.9 % (21-51); MEAN CORPUSCULAR HEMOGLOBIN 24.1 PG (27.0-31.0); MEAN CORPUSCULAR HGB CONC 31.4 % (33.0-36.5); MEAN PLATELET VOLUME 8.4 FL (7.4-10.4); MONOCYTES # (AUTO) 1.5 X10'3 (0-0.9); MONOCYTES % (AUTO) 10.3 % (2-12); NEUTROPHILS # (AUTO) 11.9 X10'3 (1.8-7.7); NEUTROPHILS % (AUTO) 83.8 % (42-75); PLATELET COUNT 106 X10'3 (140-440); RED BLOOD COUNT 3.35 X10'6 (4.70-6.10); RED CELL DISTRIBUTION WIDTH 21.4 % (11.5-14.5); WHITE BLOOD COUNT 14.2 X10'3 (4.5-11.0)
[2018-05-05] MEDS: atorvastatin 10mg tablet PO SCH (07:24)
[2018-05-05] MEDS: metoprolol tartrate 50mg tablet PO SCH ×2 (07:24→20:10)
[2018-05-05] MEDS: aspirin 81mg tab.chew PO SCH (07:24)
[2018-05-05] MEDS: docusate sod 100mg capsule PO SCH ×2 (07:24→20:10)
[2018-05-05] MEDS: lisinopril 5mg tablet PO SCH (07:24)
[2018-05-05] MEDS: pantoprazole 40mg Tablet.DR PO SCH (07:24)
[2018-05-05 08:41] LABS: ANISOCYTOSIS 3+; PLATELET ESTIMATE DECREASED
[2018-05-05] MEDS ORDERED: furosemide 20 MG/2 ML vial IV ONE (09:40)
[2018-05-05] MEDS ORDERED: amiodarone 200mg tablet PO ONE (09:45)
[2018-05-05] MEDS: dabigatran 150mg capsule PO SCH (20:10)
[2018-05-05] MEDS: insulin Lispro (HumaLOG) vial - multi-dose SQ SCH (20:12)
[2018-05-05] MEDS: insulin glargine (Lantus) pen - multi-dose SQ SCH (21:00)
[2018-05-05] MEDS: polyethylene glycol 3350 17gm powd pack PO SCH (21:24)
[2018-05-05] MEDS: nortriptyline 25mg capsule PO SCH (21:37)
[2018-05-06] VITALS (16 sets, daily range): BP systolic 93–113; BP diastolic 56–76
[2018-05-06] MEDS: temazepam 15mg capsule PO PRN ×2 (01:48→20:34)
[2018-05-06 06:54] LABS: ALBUMIN 2.3 G/DL (3.4-5.0); ANION GAP 4 (8-16); BLOOD UREA NITROGEN 23 MG/DL (7-18); BUN/CREATININE RATIO 25.6 (5.4-32.0); CHLORIDE 101 MMOL/L (99-107); GLUCOSE 156 MG/DL (70-104); MAGNESIUM 1.8 MG/DL (1.5-2.4); PHOSPHORUS 3.3 MG/DL (2.3-4.5); POTASSIUM 4.1 MMOL/L (3.5-5.1); SODIUM 134 MMOL/L (135-145); TOTAL CARBON DIOXIDE 28.6 MMOL/L (24-32); eGFR 82 ML/MIN
[2018-05-06] MEDS: pantoprazole 40mg Tablet.DR PO SCH (07:18)
[2018-05-06] MEDS: dabigatran 150mg capsule PO SCH ×2 (08:35→20:34)
[2018-05-06] MEDS: docusate sod 100mg capsule PO SCH ×2 (08:37→20:34)
[2018-05-06] MEDS: atorvastatin 10mg tablet PO SCH (08:37)
[2018-05-06] MEDS: aspirin 81mg tab.chew PO SCH (08:38)
[2018-05-06] MEDS: amiodarone 200mg tablet PO SCH (08:39)
[2018-05-06] MEDS: insulin Lispro (HumaLOG) vial - multi-dose SQ SCH ×2 (08:44→19:29)
[2018-05-06] MEDS: metoprolol tartrate 50mg tablet PO SCH ×2 (08:59→20:40)
[2018-05-06] MEDS: lisinopril 5mg tablet PO SCH (09:00)
[2018-05-06] MEDS ORDERED: magnesium citrate 296ml oral solution PO ONE (10:05)
[2018-05-06] MEDS: sodium chloride 0.45% 1,000 ML IV SCH (13:09)
[2018-05-06 19:23] LABS: BASOPHILS % (AUTO) 0 % (0-1); EOSINOPHILS # (AUTO) 0.3 X10'3 (0-0.9); EOSINOPHILS % (AUTO) 4.1 % (0-6); HEMATOCRIT 26.8 % (42.0-52.0); HEMOGLOBIN 8.3 g/dl (14.0-17.9); LYMPHOCYTES # (AUTO) 0.7 X10'3 (1.1-4.8); MEAN CORPUSCULAR HEMOGLOBIN 24.1 PG (27.0-31.0); MEAN CORPUSCULAR HGB CONC 31.1 % (33.0-36.5); MEAN CORPUSCULAR VOLUME 77.6 FL (78-98); MEAN PLATELET VOLUME 7.9 FL (7.4-10.4); MONOCYTES % (AUTO) 12.1 % (2-12); NEUTROPHILS # (AUTO) 6.1 X10'3 (1.8-7.7); NEUTROPHILS % (AUTO) 74.8 % (42-75); PLATELET COUNT 131 X10'3 (140-440); RED BLOOD COUNT 3.45 X10'6 (4.70-6.10); RED CELL DISTRIBUTION WIDTH 21.1 % (11.5-14.5); WHITE BLOOD COUNT 8.1 X10'3 (4.5-11.0)
[2018-05-06 19:40] LABS: ALANINE AMINOTRANSFERASE 25 U/L (12-78); ALBUMIN 2.5 G/DL (3.4-5.0); ALBUMIN/GLOBULIN RATIO 0.9 (1.1-1.5); ALKALINE PHOSPHATASE 82 IU/L (46-116); ANION GAP 3 (8-16); ASPARTATE AMINO TRANSFERASE 33 U/L (10-37); BILIRUBIN,TOTAL 0.9 MG/DL (0.1-1.0); BLOOD UREA NITROGEN 21 MG/DL (7-18); BUN/CREATININE RATIO 24.4 (5.4-32.0); CALCIUM 8.4 MG/DL (8.5-10.1); CHLORIDE 100 MMOL/L (99-107); CREATININE 0.86 MG/DL (0.60-1.10); GLUCOSE 168 MG/DL (70-104); MAGNESIUM 1.8 MG/DL (1.5-2.4); PHOSPHORUS 3.4 MG/DL (2.3-4.5); POTASSIUM 4.2 MMOL/L (3.5-5.1); SODIUM 134 MMOL/L (135-145); TOTAL CARBON DIOXIDE 30.7 MMOL/L (24-32); TOTAL PROTEIN 5.4 G/DL (6.4-8.2); eGFR 86 ML/MIN
[2018-05-06] MEDS ORDERED: POTASSIUM CL IV PRN (20:05)
[2018-05-06] MEDS ORDERED: potassium Cl 40MEQ/NS 500ml 500 ML IV PRN (20:05)
[2018-05-06] MEDS ORDERED: [UNRECOGNIZED DRUG - OTHER] IV PRN (20:05)
[2018-05-06] MEDS: magnesium 4gm in 100ml NS 100 ML IV PRN (20:06)
[2018-05-06] MEDS: nortriptyline 25mg capsule PO SCH (20:34)
[2018-05-06] MEDS: polyethylene glycol 3350 17gm powd pack PO SCH (20:35)
[2018-05-06] MEDS: potass W/LIDOcaine 10mEq/100ml 100 ML IV PRN ×2 (20:54→21:59)
[2018-05-06] MEDS: insulin glargine (Lantus) pen - multi-dose SQ SCH (21:57)
[2018-05-06] MEDS: ipratropium/albuterol 3ml nebule IH PRN (23:10)
[2018-05-07] VITALS (23 sets, daily range): BP systolic 91–138; BP diastolic 43–79
[2018-05-07 00:54] LABS: ANISOCYTOSIS 3+; PLATELET ESTIMATE DECREASED
[2018-05-07 00:55] LABS: ELLIPTOCYTES FEW; HYPOCHROMASIA 1+; MICROCYTOSIS 1+; POIKILOCYTOSIS FEW; POLYCHROMASIA 1+
[2018-05-07] MEDS: pantoprazole 40mg Tablet.DR PO SCH (07:26)
[2018-05-07 07:56] LABS: BASOPHILS % (AUTO) 0.2 % (0-1); EOSINOPHILS # (AUTO) 0.4 X10'3 (0-0.9); EOSINOPHILS % (AUTO) 4.2 % (0-6); HEMATOCRIT 26.7 % (42.0-52.0); HEMOGLOBIN 8.2 g/dl (14.0-17.9); LYMPHOCYTES # (AUTO) 1.4 X10'3 (1.1-4.8); LYMPHOCYTES % (AUTO) 15.1 % (21-51); MEAN CORPUSCULAR HEMOGLOBIN 23.8 PG (27.0-31.0); MEAN CORPUSCULAR HGB CONC 30.6 % (33.0-36.5); MEAN CORPUSCULAR VOLUME 77.9 FL (78-98); MEAN PLATELET VOLUME 8.1 FL (7.4-10.4); MONOCYTES # (AUTO) 1.2 X10'3 (0-0.9); MONOCYTES % (AUTO) 12.5 % (2-12); NEUTROPHILS # (AUTO) 6.5 X10'3 (1.8-7.7); PLATELET COUNT 150 X10'3 (140-440); RED BLOOD COUNT 3.43 X10'6 (4.70-6.10); RED CELL DISTRIBUTION WIDTH 21.2 % (11.5-14.5); WHITE BLOOD COUNT 9.5 X10'3 (4.5-11.0)
[2018-05-07] MEDS: lisinopril 5mg tablet PO SCH (08:00)
[2018-05-07] MEDS: metoprolol tartrate 50mg tablet PO SCH ×2 (08:00→20:50)
[2018-05-07 08:19] LABS: ALANINE AMINOTRANSFERASE 28 U/L (12-78); ALBUMIN 2.4 G/DL (3.4-5.0); ALBUMIN/GLOBULIN RATIO 0.8 (1.1-1.5); ALKALINE PHOSPHATASE 70 IU/L (46-116); ANION GAP 4 (8-16); ASPARTATE AMINO TRANSFERASE 33 U/L (10-37); BILIRUBIN,TOTAL 0.9 MG/DL (0.1-1.0); BLOOD UREA NITROGEN 20 MG/DL (7-18); CALCIUM 8.5 MG/DL (8.5-10.1); CHLORIDE 101 MMOL/L (99-107); CREATININE 0.91 MG/DL (0.60-1.10); GLUCOSE 110 MG/DL (70-104); MAGNESIUM 2.3 MG/DL (1.5-2.4); PHOSPHORUS 3.8 MG/DL (2.3-4.5); POTASSIUM 4.5 MMOL/L (3.5-5.1); SODIUM 136 MMOL/L (135-145); TOTAL CARBON DIOXIDE 31.2 MMOL/L (24-32); TOTAL PROTEIN 5.3 G/DL (6.4-8.2); eGFR 81 ML/MIN
[2018-05-07] MEDS: aspirin 81mg tab.chew PO SCH (08:58)
[2018-05-07] MEDS: docusate sod 100mg capsule PO SCH ×2 (08:58→20:50)
[2018-05-07] MEDS: amiodarone 200mg tablet PO SCH (08:58)
[2018-05-07] MEDS: dabigatran 150mg capsule PO SCH ×2 (08:58→20:50)
[2018-05-07] MEDS: atorvastatin 10mg tablet PO SCH (08:58)
[2018-05-07] MEDS: insulin Lispro (HumaLOG) vial - multi-dose SQ SCH ×2 (09:17→13:17)
[2018-05-07 09:38] LABS: ANISOCYTOSIS 3+; HYPOCHROMASIA 1+; PLATELET ESTIMATE NORMAL
[2018-05-07 09:39] LABS: MICROCYTOSIS 1+; POIKILOCYTOSIS 1+
[2018-05-07] MEDS: magnesium 2GM in 50ml NS 50 ML IV PRN (10:32)
[2018-05-07] MEDS: nortriptyline 25mg capsule PO SCH (20:51)
[2018-05-07] MEDS: insulin glargine (Lantus) pen - multi-dose SQ SCH (20:53)
[2018-05-07] MEDS: polyethylene glycol 3350 17gm powd pack PO SCH (21:00)
[2018-05-07] MEDS: temazepam 15mg capsule PO PRN (22:30)
[2018-05-08] VITALS (30 sets, daily range): BP systolic 86–134; BP diastolic 43–86
[2018-05-08] MEDS: HYDROcodone/acetaminophen 10/325mg tab PO PRN ×2 (00:57→19:55)
[2018-05-08 05:35] LABS: ALANINE AMINOTRANSFERASE 33 U/L (12-78); ALBUMIN 2.1 G/DL (3.4-5.0); ALBUMIN/GLOBULIN RATIO 0.8 (1.1-1.5); ALKALINE PHOSPHATASE 74 IU/L (46-116); ANION GAP 6 (8-16); ASPARTATE AMINO TRANSFERASE 39 U/L (10-37); BILIRUBIN,TOTAL 0.9 MG/DL (0.1-1.0); BLOOD UREA NITROGEN 16 MG/DL (7-18); BUN/CREATININE RATIO 19.3 (5.4-32.0); CHLORIDE 101 MMOL/L (99-107); CREATININE 0.83 MG/DL (0.60-1.10); GLUCOSE 92 MG/DL (70-104); PHOSPHORUS 4.2 MG/DL (2.3-4.5); POTASSIUM 4.5 MMOL/L (3.5-5.1); SODIUM 135 MMOL/L (135-145); TOTAL CARBON DIOXIDE 28.1 MMOL/L (24-32); TOTAL PROTEIN 4.9 G/DL (6.4-8.2); eGFR 90 ML/MIN
[2018-05-08 05:46] LABS: BASOPHILS % (AUTO) 0.1 % (0-1); EOSINOPHILS # (AUTO) 0.4 X10'3 (0-0.9); EOSINOPHILS % (AUTO) 4.5 % (0-6); HEMATOCRIT 23.8 % (42.0-52.0); HEMOGLOBIN 7.4 g/dl (14.0-17.9); LYMPHOCYTES # (AUTO) 0.7 X10'3 (1.1-4.8); LYMPHOCYTES % (AUTO) 7.2 % (21-51); MEAN CORPUSCULAR HEMOGLOBIN 24.2 PG (27.0-31.0); MEAN CORPUSCULAR HGB CONC 31.1 % (33.0-36.5); MEAN CORPUSCULAR VOLUME 77.6 FL (78-98); MEAN PLATELET VOLUME 8.1 FL (7.4-10.4); NEUTROPHILS % (AUTO) 77.2 % (42-75); PLATELET COUNT 146 X10'3 (140-440); RED BLOOD COUNT 3.07 X10'6 (4.70-6.10); RED CELL DISTRIBUTION WIDTH 20.9 % (11.5-14.5); WHITE BLOOD COUNT 9.1 X10'3 (4.5-11.0)
[2018-05-08] MEDS: magnesium 4gm in 100ml NS 100 ML IV PRN (05:52)
[2018-05-08 07:12] LABS: ANISOCYTOSIS 3+; MICROCYTOSIS 1+; PLATELET ESTIMATE NORMAL
[2018-05-08 07:13] LABS: HYPOCHROMASIA 1+
[2018-05-08] MEDS: lisinopril 5mg tablet PO SCH (07:35)
[2018-05-08] MEDS: dabigatran 150mg capsule PO SCH ×2 (07:35→19:54)
[2018-05-08] MEDS: docusate sod 100mg capsule PO SCH ×2 (07:36→19:55)
[2018-05-08] MEDS: aspirin 81mg tab.chew PO SCH (07:36)
[2018-05-08] MEDS: metoprolol tartrate 50mg tablet PO SCH ×2 (07:36→19:55)
[2018-05-08] MEDS: pantoprazole 40mg Tablet.DR PO SCH (07:36)
[2018-05-08] MEDS: amiodarone 200mg tablet PO SCH (07:36)
[2018-05-08] MEDS: atorvastatin 10mg tablet PO SCH (07:36)
[2018-05-08] MEDS: insulin Lispro (HumaLOG) vial - multi-dose SQ SCH ×3 (09:02→20:00)
[2018-05-08] MEDS ORDERED: furosemide 40mg/4ml inj IV ONE (09:10)
[2018-05-08] MEDS: ipratropium/albuterol 3ml nebule IH PRN (11:59)
[2018-05-08] MEDS: sodium chloride 0.45% 1,000 ML IV SCH (13:09)
[2018-05-08] MEDS: nortriptyline 25mg capsule PO SCH (19:54)
[2018-05-08] MEDS: temazepam 15mg capsule PO PRN (19:54)
[2018-05-08] MEDS: polyethylene glycol 3350 17gm powd pack PO SCH (19:55)
[2018-05-08] MEDS: insulin glargine (Lantus) pen - multi-dose SQ SCH (19:59)
[2018-05-09] VITALS (11 sets, daily range): BP systolic 94–135; BP diastolic 53–81
[2018-05-09 05:20] LABS: MAGNESIUM 2.1 MG/DL (1.5-2.4); POTASSIUM 4.2 MMOL/L (3.5-5.1)
[2018-05-09] MEDS: docusate sod 100mg capsule PO SCH (08:00)
[2018-05-09] MEDS ORDERED: metoprolol tartrate 25mg tablet PO SCH (08:00)
[2018-05-09] MEDS: aspirin 81mg tab.chew PO SCH (08:45)
[2018-05-09] MEDS: atorvastatin 10mg tablet PO SCH (08:46)
[2018-05-09] MEDS: dabigatran 150mg capsule PO SCH (08:46)
[2018-05-09] MEDS: amiodarone 200mg tablet PO SCH (08:46)
[2018-05-09] MEDS: pantoprazole 40mg Tablet.DR PO SCH (08:51)
[2018-05-09 09:18] LABS: BASOPHILS # (AUTO) 0.1 X10'3 (0-0.2); EOSINOPHILS # (AUTO) 0.8 X10'3 (0-0.9); EOSINOPHILS % (AUTO) 9.4 % (0-6); HEMATOCRIT 28.1 % (42.0-52.0); HEMOGLOBIN 9.1 g/dl (14.0-17.9); LYMPHOCYTES # (AUTO) 0.9 X10'3 (1.1-4.8); LYMPHOCYTES % (AUTO) 11.3 % (21-51); MEAN CORPUSCULAR HEMOGLOBIN 25.4 PG (27.0-31.0); MEAN CORPUSCULAR HGB CONC 32.5 % (33.0-36.5); MEAN CORPUSCULAR VOLUME 78.2 FL (78-98); MEAN PLATELET VOLUME 7.8 FL (7.4-10.4); MONOCYTES # (AUTO) 0.8 X10'3 (0-0.9); MONOCYTES % (AUTO) 10.1 % (2-12); NEUTROPHILS # (AUTO) 5.8 X10'3 (1.8-7.7); NEUTROPHILS % (AUTO) 68.2 % (42-75); PLATELET COUNT 178 X10'3 (140-440); RED BLOOD COUNT 3.59 X10'6 (4.70-6.10); WHITE BLOOD COUNT 8.4 X10'3 (4.5-11.0)
[2018-05-09 11:05] LABS: ANISOCYTOSIS 2+; HYPOCHROMASIA 1+; PLATELET ESTIMATE NORMAL; POLYCHROMASIA 1+
[2018-05-09] MEDS ORDERED: lisinopril 5mg tablet PO SCH (21:00)
== END 2018-05-09 11:24 | DRG 216 ==
LOC: ER 19:42 → PCU 3S 22:03 → CMPBEDREQ 23:48 → CICU 2S 05-02 10:19
PROVIDERS: ADMIT Internal Medicine; ATTEND Thoracic Surgery (Cardiothoracic Vascular Surgery)
PROC: 4A023N7 Measurement of Cardiac Sampling and Pressure, Left Heart, Percutaneous Approach (ICD-10-PCS; 2018-05-01)
PROC: B2111ZZ Fluoroscopy of Multiple Coronary Arteries using Low Osmolar Contrast (ICD-10-PCS; 2018-05-01)
PROC: B2151ZZ Fluoroscopy of Left Heart using Low Osmolar Contrast (ICD-10-PCS; 2018-05-01)
PROC: B3101ZZ Fluoroscopy of Thoracic Aorta using Low Osmolar Contrast (ICD-10-PCS; 2018-05-01)
PROC: B31N1ZZ Fluoroscopy of Other Upper Arteries using Low Osmolar Contrast (ICD-10-PCS; 2018-05-01)
PROC: 02100Z9 Bypass Coronary Artery, One Artery from Left Internal Mammary, Open Approach (ICD-10-PCS; 2018-05-02)
PROC: 021309W Bypass Coronary Artery, Four or More Arteries from Aorta with Autologous Venous Tissue, Open Approach (ICD-10-PCS; 2018-05-02)
PROC: 06BQ4ZZ Excision of Left Saphenous Vein, Percutaneous Endoscopic Approach (ICD-10-PCS; 2018-05-02)
PROC: 30233N1 Transfusion of Nonautologous Red Blood Cells into Peripheral Vein, Percutaneous Approach (ICD-10-PCS; 2018-05-02)
PROC: 02HP32Z Insertion of Monitoring Device into Pulmonary Trunk, Percutaneous Approach (ICD-10-PCS; 2018-05-02)
PROC: 30233M1 Transfusion of Nonautologous Plasma Cryoprecipitate into Peripheral Vein, Percutaneous Approach (ICD-10-PCS; 2018-05-02)
PROC: 4A133B3 Monitoring of Arterial Pressure, Pulmonary, Percutaneous Approach (ICD-10-PCS; 2018-05-02)
PROC: 4A1239Z Monitoring of Cardiac Output, Percutaneous Approach (ICD-10-PCS; 2018-05-02)
PROC: 02HV33Z Insertion of Infusion Device into Superior Vena Cava, Percutaneous Approach (ICD-10-PCS; 2018-05-02)
PROC: B24BZZ4 Ultrasonography of Heart with Aorta, Transesophageal (ICD-10-PCS; 2018-05-02)
PROC: 5A1221Z Performance of Cardiac Output, Continuous (ICD-10-PCS; 2018-05-02)
PROC: 02L70CK Occlusion of Left Atrial Appendage with Extraluminal Device, Open Approach (ICD-10-PCS; 2018-05-02)
PROC: 02UG0JZ Supplement Mitral Valve with Synthetic Substitute, Open Approach (ICD-10-PCS; principal; 2018-05-02 06:55)
PROC: 30233N1 Transfusion of Nonautologous Red Blood Cells into Peripheral Vein, Percutaneous Approach (ICD-10-PCS; 2018-05-08)
DX: I21.4 Non-ST elevation (NSTEMI) myocardial infarction (principal); I50.33 Acute on chronic diastolic (congestive) heart failure; D68.9 Coagulation defect, unspecified; I44.7 Left bundle-branch block, unspecified; I34.0 Nonrheumatic mitral (valve) insufficiency; I48.0 Paroxysmal atrial fibrillation; G62.9 Polyneuropathy, unspecified; E78.5 Hyperlipidemia, unspecified; D50.9 Iron deficiency anemia, unspecified; R00.0 Tachycardia, unspecified; I11.0 Hypertensive heart disease with heart failure; I25.110 Atherosclerotic heart disease of native coronary artery with unstable angina pectoris; Z90.49 Acquired absence of other specified parts of digestive tract; Z98.42 Cataract extraction status, left eye; Z79.02 Long term (current) use of antithrombotics/antiplatelets; Z79.899 Other long term (current) drug therapy; Z87.891 Personal history of nicotine dependence
CPT/HCPCS: 0232T; 93306; 93312; 93325; 93458; 96374; 99285; Z7506; Z7508; 36415; 36600; 71045; 80048; 80053; 80061; 82330; 82435; 82803; 82947; 82948; 83036; 83735; 84100; 84132; 84295; 84484; 85018; 85025; 85347; 85379; 85384; 85610; 85730; 86885; 86900; 86901; 86920; 87070; 93005; 93880; 93971; 94002; 94010; 94640; 94668; 94760; 97110; 97116; 97161; 97530; 99152; 99153; A4620; A6255; A6257; A6258; A6402; A6449; A7000; A7048; C1751; C1760; C1769; C9113; G0378; J0171; J0282; J0690; J1265; J1644; J1815; J1940; J2001; J2060; J2150; J2250; J2270; J2370; J2440; J2720; J2930; J3010; J3246; J3370; J3475; J3480; J3490; J7030; J7120; P9012; P9016; P9045; P9047; Q9967